=== PATIENT | female | born 1990 | race Caucasian/White ===

== ENCOUNTER 2017-08-19 15:38 | Inpatient (IN) | payer OTHER ==
[~2017-08-19] VITALS: Ht 167.6 cm; Wt 100.2 kg
[2017-08-19 20:31] LABS: BASOPHIL % 0.5 % (0-2); PLATELET COUNT 214 x10^3mcL (130-400); RED CELL DISTRIBUTION WIDTH 13.9 % (11.5-14.5)
[2017-08-19 20:32] LABS: CALCIUM 8.9 mg/dL (8.5-10.1); CARBON DIOXIDE 27.5 mmol/L (21-32); CHLORIDE SERUM 105 mmol/L (98-107); CREATININE SERUM 0.7 mg/dL (0.6-1.0); GFR1 > 60 mL/min; GLUCOSE SERUM 105 mg/dL (74-106); POTASSIUM SERUM 3.7 mmol/L (3.5-5.1); SODIUM SERUM 138 mmol/L (136-145)
[2017-08-19 20:36] LABS: ALBUMIN 3.5 g/dL (3.4-5.0); ALKALINE PHOSPHATASE 208 U/L (46-116); ALT/SGPT 335 U/L (14-59); AST/SGOT 145 U/L (15-37); BILIRUBIN TOTAL 2.89 mg/dL (0.20-1.00)
[2017-08-19 23:01] VITALS: BP 119/67
[2017-08-20 05:32] VITALS: BP 117/72
[2017-08-20 06:28] LABS: BASOPHIL % 0.5 % (0-2); PLATELET COUNT 175 x10^3mcL (130-400); RED CELL DISTRIBUTION WIDTH 13.5 % (11.5-14.5)
[2017-08-20 06:50] LABS: ALKALINE PHOSPHATASE 186 U/L (46-116); ALT/SGPT 282 U/L (14-59); AST/SGOT 97 U/L (15-37); CALCIUM 8.6 mg/dL (8.5-10.1); CARBON DIOXIDE 26.5 mmol/L (21-32); CHLORIDE SERUM 106 mmol/L (98-107); CREATININE SERUM 0.7 mg/dL (0.6-1.0); GFR1 > 60 mL/min; GLUCOSE SERUM 105 mg/dL (74-106); POTASSIUM SERUM 4.1 mmol/L (3.5-5.1); SODIUM SERUM 140 mmol/L (136-145); TOTAL PROTEIN, SERUM 6.4 g/dL (6.4-8.2)
[2017-08-20 10:02] VITALS: BP 123/84
[2017-08-20 16:55] VITALS: BP 122/71
[2017-08-20 21:59] VITALS: BP 130/75
[2017-08-21 06:04] VITALS: BP 121/73
[2017-08-21 06:28] LABS: BASOPHIL % 0.5 % (0-2); PLATELET COUNT 186 x10^3mcL (130-400); RED CELL DISTRIBUTION WIDTH 13.7 % (11.5-14.5)
[2017-08-21 07:03] LABS: ALKALINE PHOSPHATASE 175 U/L (46-116); ALT/SGPT 226 U/L (14-59); AST/SGOT 54 U/L (15-37); BILIRUBIN DIRECT 0.63 mg/dL (0.0-0.2); CALCIUM 8.9 mg/dL (8.5-10.1); CARBON DIOXIDE 26.7 mmol/L (21-32); CHLORIDE SERUM 106 mmol/L (98-107); CREATININE SERUM 0.7 mg/dL (0.6-1.0); GFR1 > 60 mL/min; GLUCOSE SERUM 88 mg/dL (74-106); POTASSIUM SERUM 4.3 mmol/L (3.5-5.1); SODIUM SERUM 141 mmol/L (136-145); TOTAL PROTEIN, SERUM 6.5 g/dL (6.4-8.2)
[2017-08-21 07:07] LABS: ALBUMIN 3.1 g/dL (3.4-5.0)
[2017-08-21 07:46] LABS: AMYLASE 45 U/L (25-115); LIPASE 191 IU/L (73-393)
[2017-08-21 18:16] VITALS: BP 132/62
[2017-08-21 21:39] VITALS: BP 137/69
[2017-08-22 05:03] VITALS: BP 123/77
[2017-08-22 06:20] LABS: BASOPHIL % 0.3 % (0-2); PLATELET COUNT 176 x10^3mcL (130-400); RED CELL DISTRIBUTION WIDTH 13.4 % (11.5-14.5)
[2017-08-22 06:37] LABS: CALCIUM 8.6 mg/dL (8.5-10.1); CARBON DIOXIDE 29.9 mmol/L (21-32); CHLORIDE SERUM 103 mmol/L (98-107); CREATININE SERUM 0.7 mg/dL (0.6-1.0); GFR1 > 60 mL/min; GLUCOSE SERUM 89 mg/dL (74-106); POTASSIUM SERUM 4.1 mmol/L (3.5-5.1); SODIUM SERUM 139 mmol/L (136-145)
[2017-08-22 10:52] VITALS: BP 116/79
[2017-08-22 14:54] VITALS: BP 119/80
[2017-08-22 17:31] VITALS: BP 119/80
[2017-08-22 18:09] VITALS: BP 115/80
== END 2017-08-22 18:35 | disposition home or self-care (01) | DRG 263 ==
LOC: ED 15:38 → MU 21:40 → DU 21:40 → EDBEDREQ 21:42 → MU 22:29
PROVIDERS: Emergency Medicine; Internal Medicine Gastroenterology; Internal Medicine Pulmonary Disease; Surgery; ADMIT Internal Medicine Pulmonary Disease
PROC: 0F798ZZ Dilation of Common Bile Duct, Via Natural or Artificial Opening Endoscopic (ICD-10-PCS; 2017-08-20 09:30)
PROC: 0FC98ZZ Extirpation of Matter from Common Bile Duct, Via Natural or Artificial Opening Endoscopic (ICD-10-PCS; 2017-08-21)
PROC: 0FT44ZZ Resection of Gallbladder, Percutaneous Endoscopic Approach (ICD-10-PCS; principal; 2017-08-21 09:30)
DX: K80.51 Calculus of bile duct without cholangitis or cholecystitis with obstruction (principal); K85.10 Biliary acute pancreatitis without necrosis or infection; F12.10 Cannabis abuse, uncomplicated; K80.20 Calculus of gallbladder without cholecystitis without obstruction; Z98.84 Bariatric surgery status; Z87.891 Personal history of nicotine dependence
CPT/HCPCS: 43262; 90658; C1726; C1769; J0330; J1170; J1610; J1885; J2175; J2250; J2270; J2405; J2543; J2704; J2710; J2765; J3010; J3490; J7030; J7042; J7120; Q0092; Q9967

== ENCOUNTER 2017-10-21 07:32 | Emergency (ER) | payer OTHER ==
[~2017-10-21] VITALS: Ht 167.6 cm; Wt 95.2 kg
[2017-10-21 08:24] VITALS: Ht 167.6 cm; Wt 95.2 kg
[2017-10-21 09:54] VITALS: BP 128/70
== END 2017-10-21 09:54 | disposition home or self-care (01) ==
LOC: ED 07:32
DX: R11.10 Vomiting, unspecified (principal); F17.210 Nicotine dependence, cigarettes, uncomplicated

== ENCOUNTER 2020-06-04 20:21 | Emergency (ER) | payer OTHER ==
[~2020-06-04] VITALS: Ht 167.6 cm; Wt 77.1 kg
[2020-06-04 20:23] VITALS: Ht 167.6 cm; Wt 77.1 kg
[2020-06-04 20:55] LABS: BASOPHIL % 0.7 % (0-2); PLATELET COUNT 268 x10^3mcL (130-400)
[2020-06-04 21:24] LABS: CALCIUM 9.7 mg/dL (8.5-10.1); CARBON DIOXIDE 26.5 mmol/L (21-32); CHLORIDE SERUM 100 mmol/L (98-107); CREATININE SERUM 1.1 mg/dL (0.6-1.0); GFR1 > 60 mL/min; GLUCOSE SERUM 137 mg/dL (74-106); POTASSIUM SERUM 3.9 mmol/L (3.5-5.1); SODIUM SERUM 138 mmol/L (136-145)
[2020-06-04 21:28] LABS: ALBUMIN 4.3 g/dL (3.4-5.0); ALKALINE PHOSPHATASE 95 U/L (46-116); ALT/SGPT 22 U/L (14-59); AST/SGOT 17 U/L (15-37); BILIRUBIN TOTAL 0.88 mg/dL (0.20-1.00); LIPASE 105 IU/L (73-393); TOTAL PROTEIN, SERUM 7.9 g/dL (6.4-8.2)
[2020-06-05 00:01] VITALS: BP 118/71
[2020-06-06] MEDS ORDERED: CELEXA20 MG PO (12:34)
== END 2020-06-05 00:01 | disposition home or self-care (01) ==
LOC: ED 20:21
PROVIDERS: Emergency Medicine
DX: R11.2 Nausea with vomiting, unspecified (principal); R10.9 Unspecified abdominal pain; Z90.49 Acquired absence of other specified parts of digestive tract; Z98.890 Other specified postprocedural states
CPT/HCPCS: J1885; J2405

== ENCOUNTER 2020-06-06 08:10 | Observation (INO) | payer OTHER ==
[~2020-06-06] VITALS: Ht 167.6 cm; Wt 73.5 kg
[2020-06-06 08:12] VITALS: Ht 167.6 cm; Wt 73.5 kg
[2020-06-06 09:57] LABS: BASOPHIL % 0.2 % (0-2); PLATELET COUNT 236 x10^3mcL (130-400)
[2020-06-06 10:00] LABS: CALCIUM 9.5 mg/dL (8.5-10.1); CARBON DIOXIDE 33.1 mmol/L (21-32); CHLORIDE SERUM 99 mmol/L (98-107); CREATININE SERUM 0.8 mg/dL (0.6-1.0); GFR1 > 60 mL/min; GLUCOSE SERUM 98 mg/dL (74-106); POTASSIUM SERUM 3.5 mmol/L (3.5-5.1); SODIUM SERUM 137 mmol/L (136-145)
[2020-06-06 10:04] LABS: RED CELL DISTRIBUTION WIDTH 15.8 % (11.5-14.5)
[2020-06-06 10:05] LABS: ALBUMIN 3.9 g/dL (3.4-5.0); ALKALINE PHOSPHATASE 79 U/L (46-116); ALT/SGPT 24 U/L (14-59); AST/SGOT 16 U/L (15-37); BILIRUBIN TOTAL 0.6 mg/dL (0.20-1.00); LIPASE 99 IU/L (73-393); TOTAL PROTEIN, SERUM 7.5 g/dL (6.4-8.2)
[2020-06-06 10:14] LABS: UA SPECIFIC GRAVITY >=1.030 (1.005-1.035); microscopic required? YES; urine erythrocyte 3+ (NEGATIVE)
[2020-06-06] MEDS ORDERED: CELEXA20 MG PO (12:34)
[2020-06-06 15:40] VITALS: BP 120/78
[2020-06-06 17:40] VITALS: BP 113/48
[2020-06-06 21:18] VITALS: BP 111/63
[2020-06-07 06:17] VITALS: BP 129/78
[2020-06-07 06:32] LABS: BASOPHIL % 0.4 % (0-2); PLATELET COUNT 182 x10^3mcL (130-400)
[2020-06-07 06:41] LABS: RED CELL DISTRIBUTION WIDTH 15.4 % (11.5-14.5)
[2020-06-07 06:45] LABS: ALKALINE PHOSPHATASE 98 U/L (46-116); ALT/SGPT 217 U/L (14-59); AST/SGOT 347 U/L (15-37); CALCIUM 8.6 mg/dL (8.5-10.1); CHLORIDE SERUM 103 mmol/L (98-107); CREATININE SERUM 0.8 mg/dL (0.6-1.0); GFR1 > 60 mL/min; GLUCOSE SERUM 98 mg/dL (74-106); POTASSIUM SERUM 3.9 mmol/L (3.5-5.1); SODIUM SERUM 138 mmol/L (136-145); TOTAL PROTEIN, SERUM 6.3 g/dL (6.4-8.2)
[2020-06-07 06:47] LABS: ALBUMIN 3.2 g/dL (3.4-5.0)
[2020-06-07 08:35] LABS: AMPHETAMINE QUAL UR NONE DETECTED (See below)
[2020-06-07 08:54] VITALS: BP 134/77
[2020-06-07 13:23] VITALS: BP 134/77
== END 2020-06-07 14:09 | disposition home or self-care (01) ==
LOC: ED 08:10 → MU 12:29
PROVIDERS: Emergency Medicine; Internal Medicine Gastroenterology; ADMIT Internal Medicine; ATTEND Internal Medicine
DX: R11.2 Nausea with vomiting, unspecified (principal); F17.200 Nicotine dependence, unspecified, uncomplicated
CPT/HCPCS: C9113; G0378; J1644; J2270; J2405; J3490; J7042; Q9967

== ENCOUNTER 2020-07-18 09:37 | Emergency (ER) | payer OTHER ==
[~2020-07-18] VITALS: Ht 167.6 cm; Wt 84.8 kg
[~2020-07-18 09:37] MED LIST: CELEXA20 MG PO
[2020-07-18 09:46] VITALS: Ht 167.6 cm; Wt 84.8 kg
[2020-07-18 10:58] LABS: ALBUMIN 3.6 g/dL (3.4-5.0); ALKALINE PHOSPHATASE 73 U/L (46-116); ALT/SGPT 24 U/L (14-59); AST/SGOT 17 U/L (15-37); BILIRUBIN DIRECT 0.07 mg/dL (0.0-0.2); BILIRUBIN TOTAL 0.24 mg/dL (0.20-1.00); CALCIUM 8.7 mg/dL (8.5-10.1); CARBON DIOXIDE 27.5 mmol/L (21-32); CHLORIDE SERUM 105 mmol/L (98-107); CREATININE SERUM 0.7 mg/dL (0.6-1.0); GFR1 > 60 mL/min; GLUCOSE SERUM 100 mg/dL (74-106); LIPASE 184 IU/L (73-393); POTASSIUM SERUM 4.3 mmol/L (3.5-5.1); SODIUM SERUM 140 mmol/L (136-145)
[2020-07-18 11:13] LABS: BASOPHIL % 0.3 % (0-2); PLATELET COUNT 243 x10^3mcL (130-400)
[2020-07-18 11:18] LABS: RED CELL DISTRIBUTION WIDTH 16.3 % (11.5-14.5)
[2020-07-18 13:41] VITALS: BP 113/73
== END 2020-07-18 13:41 | disposition home or self-care (01) ==
LOC: ED 09:37
PROVIDERS: Emergency Medicine
DX: R10.816 Epigastric abdominal tenderness (principal); R11.10 Vomiting, unspecified; Z98.51 Tubal ligation status; Z90.49 Acquired absence of other specified parts of digestive tract
CPT/HCPCS: J2270; J2405; J7030; Q9967